=== PATIENT | male | born 1990 ===

== ENCOUNTER 2021-01-21 08:37 | Emergency (ER) | payer OTHER, BC ==
[~2021-01-21] VITALS: Ht 157.5 cm; Wt 68.0 kg
== END 2021-01-21 09:30 | disposition home or self-care (01) ==
LOC: ER 08:37
DX: S50.12XA Contusion of left forearm, initial encounter (principal); W20.8XXA Other cause of strike by thrown, projected or falling object, initial encounter
CPT/HCPCS: 73090; 99283-25; A9270